=== PATIENT | male | born 1995 ===

== ENCOUNTER 2017-03-13 01:32 | Emergency (ER) | payer OTHER ==
[2017-03-13 01:39] VITALS: O2SAT 100
[2017-03-13] MEDS ORDERED: Aspirin 325 mg EC Tablets PO STA (02:11)
--- NOTE | 2017-03-13 02:12 | C.PDOC ---
History Of Present Illness Patient presents to the ED with complaints of a "funny feeling" radiating through his body and sweaty feet. Patient states he googled his symptoms and believed he was having a heart attack. Patient denies chest pain, shortness of breath, or palpitations. Time Seen by Provider: 03/13/17 02:10 Chief Complaint (Nursing): Weakness/Neurological Deficit History Per: Patient History/Exam Limitations: no limitations Onset/Duration Of Symptoms: Hrs Current Symptoms Are (Timing): Still Present Activity At Onset Of Symptoms: Lying Associated Symptoms Preceding Syncopal Episode: No Predromal Symptoms (Sudden Onset) Seizure Or Post-ictal Symptoms: None Fall Associated With With Symptoms: No Severity: Mild Pain Scale Rating Of: 3 Recent travel outside of the [place]: No Past Medical History Reviewed: Historical Data, Nursing Documentation, Vital Signs Vital Signs: Last Vital Signs Temp 98 F 03/13/17 01:35 Pulse 82 03/13/17 01:35 Resp 20 03/13/17 01:35 BP 145/90 03/13/17 01:35 Pulse Ox 100 03/13/17 02:48 Family History: States: Unknown Family Hx - Social History Hx Alcohol Use: No Hx Substance Use: No - Immunization History Hx Tetanus Toxoid Vaccination: No Hx Influenza Vaccination: No Hx Pneumococcal Vaccination: No Review Of Systems Constitutional: Negative for: Fever, Chills Cardiovascular: Negative for: Chest Pain, Palpitations Respiratory: Negative for: Cough, Shortness of Breath Gastrointestinal: Negative for: Nausea, Vomiting, Abdominal Pain, Diarrhea Musculoskeletal: Positive for: Other (Sweaty feet ) Neurological: Negative for: Weakness, Numbness, Headache, Dizziness Physical Exam - Physical Exam Appears: Non-toxic, No Acute Distress Skin: Warm, Dry, No Diaphoretic Eye(s): bilateral: Normal Inspection Oral Mucosa: Moist Neck: Supple Chest: Symmetrical, No Deformity Cardiovascular: Rhythm Regular Respiratory: No Rales, No Rhonchi, No Wheezing Gastrointestinal/Abdominal: Soft, No Tenderness, No Distention, No Guarding, No Rebound Extremity: Normal ROM, No Tenderness, No Calf Tenderness Neurological/Psych: Oriented x3, Normal Speech, Normal Cognition, Normal Motor, Normal Sensation, Normal Reflexes Gait: Steady ED Course And Treatment - Laboratory Results Result Diagrams: 03/13/17 02:27 03/13/17 02:27 ECG: Interpreted By Me, Viewed By Me ECG Rhythm: Sinus Rhythm (81), Nonspecific Changes O2 Sat by Pulse Oximetry: 100 (room air ) Pulse Ox Interpretation: Normal - Radiology CXR: Interpreted by Me, Viewed By Me CXR Interpretation: No: Infiltrates, Fracture, Pnemothorax Reevaluation Time: 03:11 Reassessment Condition: Improved Medical Decision Making Medical Decision Making: I considered the following diagnoses: acute coronary syndrome, pulmonary embolism, lower respiratory infection, aortic dissection/aneurysm, pneumothorax , pericarditis, esophagitis/GERD, zoster and esophageal rupture but found them to be unlikely based on the history, physical exam, and diagnostics. My conclusions regarding the unlikely diagnoses were based on: the absence of significant EKG abnormalities, the lack of suggestive x-ray findings, the absence of significant abnormalities on cardiac monitoring, the absence of asymmetric pulses. Pt fells fine and wants to go home Upon provider reevaluation patient is feeling better, is medically stable, and requires no further treatment in the ED at this time. Patient will be discharged home . Counseling was provided and all questions were answered regarding diagnosis and need for follow up with the referred clinic. There is agreement to discharge plan. Return if symptoms persist or worsen Disposition Counseled Patient/Family Regarding: Studies Performed, Diagnosis, Need For Followup - Disposition Referrals: [facility] [Outside] [facility] [Outside] Disposition: HOME/ ROUTINE Disposition Time: 03:11 Condition: FAIR Additional Instructions: Please return if symptoms recur Instructions: Anxiety (ED), Noncardiac Chest Pain (ED) Forms: Work Excuse - Clinical Impression Clinical Impression: Anxiety, Atypical chest pain - Scribe Statement The provider has reviewed the documentation as recorded by the Scribjaneth Ramirez All medical record entries made by the Pingibjaneth were at my direction and personally dictated by me. I have reviewed the chart and agree that the record accurately reflects my personal performance of the history, physical exam, medical decision making, and the department course for this patient. I have also personally directed, reviewed, and agree with the discharge instructions and disposition.
[2017-03-13] MEDS ORDERED: Aspirin 325 mg EC Tablets PO ONE (02:15)
[2017-03-13 02:32] LABS: BASO # 0.1 K/uL (0.0-0.2); BASO % 0.8 % (0.0-2.0); EOS # 0.4 K/uL (0.0-0.7); EOS % 6.2 % (0.0-4.0); HEMOGLOBIN 15.1 g/dL (12.0-18.0); LYMPH # 2.2 K/uL (1.0-4.3); LYMPH % 30.1 % (20.0-40.0); MEAN CELL VOLUME 95.4 fL (80.0-94.0); MEAN CORPUSCULAR HEMOGLOBIN 32.1 pg (27.0-31.0); MEAN CORPUSCULAR HGB CONC 33.7 g/dL (33.0-37.0); MEAN PLATELET VOLUME 7.6 fL (7.2-11.7); MONO # 0.8 K/uL (0.0-0.8); MONO % 10.4 % (0.0-10.0); NEUT # 3.8 K/uL (1.8-7.0); NEUT % 52.5 % (50.0-75.0); NRBC % 0.1 % (0.0-2.0); RBC 4.69 Mil/uL (4.40-5.90); RED CELL DISTRIBUTION WIDTH 12.6 % (11.5-14.5); WHITE BLOOD COUNT 7.2 K/uL (4.8-10.8)
[2017-03-13 02:35] LABS: URINE BILIRUBIN NEGATIVE (NEGATIVE); URINE BLOOD NEGATIVE (NEGATIVE); URINE CLARITY Clear (Clear); URINE COLOR Straw (YELLOW); URINE GLUCOSE (UA) NORMAL (Normal); URINE LEUKOCYTE ESTERASE NEG Leu/uL (Negative); URINE NITRATE NEGATIVE (NEGATIVE); URINE PROTEIN NEGATIVE (NEGATIVE); URINE UROBILINOGEN NORMAL mg/dL (0.2-1.0)
[2017-03-13 02:39] LABS: PROTHROMBIN TIME 11.4 SECONDS (9.7-12.2)
[2017-03-13 02:49] LABS: ALBUMIN 4.6 g/dL (3.5-5.0)
[2017-03-13 02:52] LABS: GFR AFRICAN-AMERICAN > 60; GFR NON-AFRICAN AMERICAN > 60
[2017-03-13 02:53] LABS: ALT/SGPT 51 U/L (21-72); AST/SGOT 59 U/L (17-59); BLOOD UREA NITROGEN 10 mg/dL (9-20); CALCIUM 9.4 mg/dl (8.6-10.4)
[2017-03-13 02:58] LABS: ALB/GLOB RATIO 1.2 (1.0-2.1)
[2017-03-13 03:34] VITALS: BP 127/78; PULSE 75; RESP 17; TEMP 98.1
--- NOTE | 2017-03-13 10:09 | RAD ---
PROCEDURE: CHEST RADIOGRAPH, 1 VIEW HISTORY: Chest pain COMPARISON: None available. FINDINGS: LUNGS: The lungs are well inflated and clear. PLEURA: No pneumothorax or pleural fluid seen. CARDIOVASCULAR: Normal. OSSEOUS STRUCTURES: No significant abnormalities. VISUALIZED UPPER ABDOMEN: Normal. OTHER FINDINGS: None. IMPRESSION: No active pulmonary disease.
--- NOTE | 2017-03-16 06:51 | CARD ---
APPROVED REPORT EKG Measurement Heart [id number] <Conclusion> Normal sinus rhythm Nonspecific ST abnormality Abnormal ECG
== END 2017-03-13 03:32 | disposition home or self-care (01) ==
LOC: C.ER 01:32
DX: F41.9 Anxiety disorder, unspecified (principal); R07.89 Other chest pain